=== PATIENT | male | born 1985 | race Caucasian/White ===

== ENCOUNTER 2024-06-07 15:10 | Emergency (ER) | payer OTHER ==
[2024-06-07 15:34] LABS: BASE EXCESS VENOUS -2.3 (-4.0-2.0); BICARBONATE,VENOUS 19.4 meq/L (22-26); O2 SATURATION VENOUS 92.9; PCO2 VENOUS 27.7 mmHg (41-51); PH,VENOUS 7.46 (7.30-7.40)
[2024-06-07] MEDS: Activated Charcoal/Water Susp 50 GM/240 ML Tube PO ONE (15:36)
[2024-06-07] MEDS: Sodium Chloride 0.9% 1,000 ML IV ONE (15:36)
[2024-06-07] MEDS: Sodium Chloride 0.9% 10 ML Syringe FLUSH PRN (15:37)
[2024-06-07 15:39] LABS: BASOPHILS PERCENT AUTO 0.1 % (0.0-1.0); HEMATOCRIT 47.8 % (42.0-52.0); HEMOGLOBIN 16.7 gm/dl (14.0-18.0); IMMATURE GRAN ABSOLUTE AUTO 0.08 K/mm3 (0.00-0.05); IMMATURE GRAN PERCENT AUTO 0.4 % (0.0-0.4); MEAN CORPUSCULAR HEMOGLOBIN 31.6 pg (28.0-32.0); MEAN CORPUSCULAR HGB CONC 34.9 g/dl (32.0-36.0); MEAN CORPUSCULAR VOLUME 90.5 fl (83.0-99.0); MONOCYTES ABSOLUTE AUTO 0.6 K/mm3 (0.0-0.8); MONOCYTES PERCENT AUTO 2.9 % (0.0-8.0); NEUTROPHILS ABSOLUTE AUTO 18.5 K/mm3 (1.8-7.7); NEUTROPHILS PERCENT AUTO 91.6 % (41.0-71.0); PLATELET COUNT,PLT 322 K/mm3 (150-400); RED BLOOD CELL COUNT 5.28 M/mm3 (4.52-5.90); WHITE BLOOD CELL COUNT,WBC 20.15 K/mm3 (3.9-11.3)
[2024-06-07 16:01] LABS: A/G RATIO 1.2 (1-2); ALBUMIN 4.4 g/dl (3.4-5.0); BILIRUBIN TOTAL 0.3 mg/dL (0.2-1.0); BUN/CREATININE RATIO 12.9 (14-18); CALCIUM 9.4 mg/dL (8.5-10.1); CREATININE 1.4 mg/dL (0.7-1.3); EST CRCL DRUG DOSING (CG) 71.7 mL/min; MAGNESIUM 2.1 mg/dL (1.8-2.4); PROTEIN TOTAL,TP 8.2 g/dl (6.4-8.2)
[2024-06-07] MEDS: Sodium Bicarbonate 8.4% 50 MEQ/50 ML Syringe IVPUSH ONE (16:21)
[2024-06-07] MEDS: 50% Dextrose in Water 50 ML Syringe IVPUSH ONE (16:21)
[2024-06-07] MEDS: Sodium Bicarbonate 8.4% 50 MEQ/50 ML Syringe ONE (16:26)
[2024-06-07 17:57] LABS: BARBITURATE SCREEN,URINE NEGATIVE (CUTOFF=200); BENZODIAZEPINES SCREEN,URINE NEGATIVE (CUTOFF=150); BUPRENORPHINE SCREEN,URINE NEGATIVE (CUTOFF=10); METHADONE SCREEN, URINE NEGATIVE (CUT0FF=200); METHAMPHETAMINES SCREEN, URINE NEGATIVE (CUTOFF=500); OXYCODONE SCREEN,URINE NEGATIVE (CUT0FF=100); THC SCREEN,URINE 20 NG/ML NEGATIVE (CUTOFF=50)
[2024-06-07 18:16] LABS: AMPHETAMINES SCREEN, URINE NEGATIVE (CUTOFF=500)
== END 2024-06-07 17:36 ==
LOC: JD.ED 15:10
DX: T39.091A Poisoning by salicylates, accidental (unintentional), initial encounter (principal)
CPT/HCPCS: 36415; 71045; 80053; 80143; 80179; 80306; 80307; 82803; 83605; 83735; 85025; 93005; 96361; 96365; 96375; 96376; 99285; A9270; J3480; J7030; J7060; 93010; J3490